=== PATIENT | female | born 1950 | race Caucasian/White ===

== ENCOUNTER → 2018-07-07 | Outpatient (CLI) | payer OTHER ==
--- NOTE | 2018-07-07 15:32 | RADIOLOGY IMAGING REPORT ---
FACILITY: [facility] - [place] PATIENT NAME: Jade Martinez : 1950 MR: [id number] V: [id number] EXAM DATE: ORDERING PHYSICIAN: BERLY CHO TECHNOLOGIST: Location: [facility] [place] Patient: Jade Martinez : 1950 Visit/Account:[id number] Date of Sevice: 07/07/2018 PELVIC HISTORY: Enlarged left ovary TECHNIQUE: Transvaginal and transabdominal ultrasound pelvis. COMPARISON: July 12, 2009 FINDINGS: Uterus: ; 10.3 cm length x 7.2 cm AP x 7.95 cm transverse. Myometrium: Diffusely heterogeneous containing numerous fibroids the largest fibroid appears to be po sterior measuring 6.4 x 5.8 x 6.9 cm. Endometrium: The endometrium is distorted by the numerous fibroids therefore not well evaluated; doub le thickness mm. Cervix: At the cervix/lower uterine segment there is a 3.3 x 2.7 x 3 cm mass, likely a fibroid. Ovaries: Right - 3.1 x 3 x 2.2 cm there is a 1 x 0.5 x 0.9 cm echogenic region within the right ovary Left - not visualized Blood flow is documented in the right ovary by duplex Doppler ultrasound. Adnexa: Grossly unremarkable. Free pelvic fluid: None. IMPRESSION: The myometrium is diffusely heterogeneous containing numerous uterine fibroids, the largest measuring 6.9 cm in diameter There appears to been additional fibroid at the cervix/lower uterine segment measuring 3.3 x 2.7 x 3 cm There is a 1 x 0.5 x 0.9 cm echogenic region within the right ovary this could represent a fatty depo sit such as in a dermoid. Short-term interval follow-up recommended Report Dictated By: Amanda Peter MD at 07/07/2018 3:08 PM Report E-Signed By: Amanda Peter MD at 07/07/2018 3:28 PM ARNOLDN:PHOEBE
== END ==
LOC: US 02:18
PROVIDERS: ATTEND Family Medicine
DX: D25.9 Leiomyoma of uterus, unspecified (principal); D26.0 Other benign neoplasm of cervix uteri
CPT/HCPCS: 76856